=== PATIENT | female | born 1990 | race Caucasian/White ===

== ENCOUNTER 2018-12-03 19:33 | Emergency (ER) | payer OTHER ==
[~2018-12-03] VITALS: Ht 162.6 cm; Wt 97.1 kg
[~2018-12-03 19:33] MED LIST: ACET500C5 PO; CYCL10TA7 PO; NAPR-985 PO; ONDA4TAB8 PO
[2018-12-03 19:37] VITALS: Ht 162.6 cm; Wt 97.1 kg
[2018-12-03] MEDS ORDERED: KETOROLAC 30 MG INJ IM STA (22:26)
[2018-12-03 23:08] VITALS: BP 113/72; PULSE 76; RESP 18
== END 2018-12-03 23:09 | disposition home or self-care (01) ==
LOC: FTE 19:33
DX: M54.6 Pain in thoracic spine (principal)
CPT/HCPCS: 81025; 96372; J1885; Z7502